=== PATIENT | female | born 1955 | race Two or more races ===

== ENCOUNTER 2021-04-02 08:09 | Day surgery (SDC) | payer OTHER ==
[~2021-04-02 08:09] MED LIST: AMBIEN5 MG PO; MULTIVITA PO; PAXIL20 MG PO; SYNTHROID75 MCG PO; TOPROL XL100 M1 PO
== END 2021-04-02 22:10 | disposition home or self-care (01) ==
LOC: CIR.AMB 08:09
PROVIDERS: ATTEND Specialist
DX: N84.0 Polyp of corpus uteri (principal); Z20.822 Contact with and (suspected) exposure to COVID-19

== ENCOUNTER → 2021-06-02 12:21 | Outpatient (CLI) | payer OTHER | END | disposition home or self-care (01) | LOC: LAB 12:21 | DX: N39.0 Urinary tract infection, site not specified (principal); I10 Essential (primary) hypertension; B96.89 Other specified bacterial agents as the cause of diseases classified elsewhere; E03.8 Other specified hypothyroidism; D64.89 Other specified anemias; E78.49 Other hyperlipidemia; E11.9 Type 2 diabetes mellitus without complications ==

== ENCOUNTER 2021-08-26 11:03 | Outpatient (CLI) | payer OTHER | END 2021-08-26 11:05 | disposition home or self-care (01) | LOC: LAB 11:03 | PROVIDERS: ATTEND Internal Medicine Cardiovascular Disease | DX: C54.1 Malignant neoplasm of endometrium (principal); D64.89 Other specified anemias; I10 Essential (primary) hypertension; E03.8 Other specified hypothyroidism; E78.2 Mixed hyperlipidemia; E11.9 Type 2 diabetes mellitus without complications; E55.9 Vitamin D deficiency, unspecified; N30.01 Acute cystitis with hematuria ==

== ENCOUNTER 2021-09-16 12:09 | Outpatient (CLI) | payer OTHER | END 2021-09-16 12:15 | disposition home or self-care (01) | LOC: MAMO-SONO 12:09 → NUCLEAR 13:45 | PROVIDERS: ATTEND Specialist | DX: N63.11 Unspecified lump in the right breast, upper outer quadrant (principal); N63.21 Unspecified lump in the left breast, upper outer quadrant ==

== ENCOUNTER 2021-09-16 13:57 | Outpatient (CLI) | payer OTHER | END 2021-09-16 14:02 | disposition home or self-care (01) | LOC: NUCLEAR 13:57 | PROVIDERS: ATTEND Specialist | DX: M81.0 Age-related osteoporosis without current pathological fracture (principal) ==

== ENCOUNTER 2021-12-24 09:48 | Outpatient (CLI) | payer OTHER | END 2021-12-24 09:58 | disposition home or self-care (01) | LOC: SONOGRAMA 09:48 | PROVIDERS: ATTEND Specialist | DX: N83.209 Unspecified ovarian cyst, unspecified side (principal) ==

== ENCOUNTER 2022-02-23 10:22 | Outpatient (CLI) | payer OTHER | END 2022-02-23 10:30 | disposition home or self-care (01) | LOC: LAB 10:22 | DX: I11.9 Hypertensive heart disease without heart failure (principal); E78.00 Pure hypercholesterolemia, unspecified; D64.1 Secondary sideroblastic anemia due to disease; G11.9 Hereditary ataxia, unspecified ==